=== PATIENT | male | born 1945 | race Hispanic/Latino ===

== ENCOUNTER 2021-10-28 10:19 | Outpatient (AMB) | payer MEDICARE, SELFPAY ==
--- NOTE | 2021-10-28 10:21 | U.OPVIS1 ---
Intake Vital Signs 10/28/21 10:22 Height 1.71 m Weight 73.085 kg BMI 24.8 BP 176/83 H Blood Pressure Location Left Upper Arm Position Sitting Pulse 74 Pulse Source Monitor Temp 97.7 F Temp Source Temporal Artery Scan Intake Visit Reasons: Uro Uroflow and Bladder Scan [facility] [employer] Required: No Is patient in pain?: No Allergy Allergies No Known Allergies Allergy (Verified 10/28/21 10:21) Home Meds Medication Reconciliation tamsulosin 0.4 mg capsule 0.4 mg PO QHS 09/03/21 [History Confirmed 10/28/21] Office Procedures Uro Bladder Scan and Uro Flow My Supervising Practitioner for this visit is:: Viky Angeles Bladder Scan and Uro Flow Completed?: Yes Diagnosis: 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
[2021-10-28 10:22] VITALS: BP 176/83; PULSE 74; TEMP 36.5; BMI 24.8
== END 2021-10-28 10:32 | disposition home or self-care (01) ==
LOC: HODURO 10:19
PROVIDERS: PCP Internal Medicine Hospice and Palliative Medicine; Visit Provider Urology